=== PATIENT | male | born 1985 | race Caucasian/White ===

== ENCOUNTER 2019-02-01 21:34 | Observation (INO) | payer OTHER ==
[~2019-02-01] VITALS: Ht 170.2 cm; Wt 68.0 kg
[2019-02-01 21:42] VITALS: BP 118/71
--- NOTE | 2019-02-01 21:54 | NUR ---
PT TO ER BED 5
--- NOTE | 2019-02-01 22:02 | NUR ---
PERSONAL BELONGINGS PICKED UP BY SECURITY.
--- NOTE | 2019-02-01 22:07 | NUR ---
RX: RISPERDAL, PAXIL, PRAZOSIN
--- NOTE | 2019-02-01 22:07 | NUR ---
PT BIB SELF C/I SI. PT STATES HE HAS BEEN FEELING THAT HE WANTS TO OVERDOSE ON HIS MEDICATION, PT STATES THE FEELING COMES AND GOES AND STARTED 2 DAYS AGO, PT CARRIES MEDICATION WITH HIM IN HIS BACKPACK. PT STATES HE RECENTLY LOST HIS JOB AND HIS GIRLFRIEND KIDS MIGHT BE TAKEN AWAY FROM HIM CAUSING HIM STRESS. PT STATES HE IS COMPLIANT W/ HIS MEDICATION, BUT HAS NOT MADE ANY ATTEMPTS TO OD TODAY. DENIES 0/10 PAIN AT THIS TIME. PT DENIES N/V/D, CP, OR SOB. --BREATHING EQUAL AND UNLABORED. LUNG SOUNDS CLEAR. BOWEL SOUNDS ACTIVE X4 QUAD. PMH: BI-POLAR, DEPRESSION
--- NOTE | 2019-02-01 22:10 | NUR ---
EMT SITTER AT BEDSIDE.
[2019-02-01 22:14] LABS: BASOPHILS % (AUTO) 0.5 % (0.0-2.0); EOSINOPHILS # (AUTO) 0.1 K/uL (0-0.4); EOSINOPHILS % (AUTO) 2.1 % (0.0-4.0); HEMATOCRIT 40.5 % (36-52); HEMOGLOBIN 13.8 g/dL (12.0-18.0); LYMPHOCYTES # (AUTO) 2.5 K/uL (2.0-11.5); LYMPHOCYTES % (AUTO) 36.5 % (20.5-51.1); MEAN CORPUSCULAR HEMOGLOBIN 32 pg (27-31); MEAN CORPUSCULAR HGB CONC 34 g/dL (33-37); MEAN CORPUSCULAR VOLUME 93.4 fL (80-94); MONOCYTES # (AUTO) 0.5 K/uL (0.8-1.0); MONOCYTES % (AUTO) 7.5 % (1.7-9.3); NEUTROPHILS # (AUTO) 3.6 K/uL (1.8-7.7); NEUTROPHILS % (AUTO) 53.4 % (42.2-75.2); PLATELET COUNT (AUTO) 233 K/uL (140-450); RED BLOOD CELL COUNT(AUTO) 4.33 MIL/uL (4.20-6.10); WHITE BLOOD COUNT (AUTO) 6.7 K/uL (4.8-10.8)
--- NOTE | 2019-02-01 22:19 | NUR ---
TELE PSYCH REQUESTED VIA ON-LINE COMPUTER
[2019-02-01 22:31] LABS: ALBUMIN 4.2 g/dL (3.4-5.0); ANION GAP 11.8 (8-16); ASPARTATE AMINOTRANSFERASE 27 U/L (15-37); CARBON DIOXIDE 28.8 mmol/L (21-32); CHLORIDE 103 mmol/L (98-107); CREATININE 0.8 mg/dL (0.7-1.3); GFR ARICAN-AMERICAN 144 mL/min (>90); GLUCOSE 79 mg/dL (74-106); POTASSIUM 3.6 mmol/L (3.5-5.1); SODIUM SERUM 140 mmol/L (136-145); TOTAL BILIRUBIN 1.3 mg/dL (0.0-1.0); UREA NITROGEN, BLOOD 10 mg/dL (7-18)
[2019-02-01 22:32] LABS: ACETAMINOPHEN < 0.5 ug/ml (10-30); SALICYLATE < 2.8 mg/dL (2.8-20.0)
[2019-02-01 23:19] LABS: BARBITURATE, URINE NEG. ng/ml (NEG <=200); BENZODIAZEPINE, URINE NEG. ng/mL (NEG <=200); CANNABINOID, URINE POS. ng/mL (NEG <=50); COCAINE, URINE NEG. ng/mL (NEG <=300); OPIATE, URINE NEG. ng/mL (NEG <=2000); PHENCYCLIDINE SCREEN,URINE NEG. ng/mL (NEG <=25)
--- NOTE | 2019-02-02 01:15 | NUR ---
REPORT PROVIDED TO DR. CARMENCITA SCHWARTZ IN PREPARATION FOR EVALUATION.
--- NOTE | 2019-02-02 02:00 | NUR ---
CALL FROM DR. CARMENCITA SCHWARTZ, PT SHOULD BE ADMITTED AND CONTINUE ON HIS CURRENT MEDICATION. JAZLYN JACOBSON AWARE. Addendum: 02/02/19 at 0224 by [email or web address] CALL FROM DR. CARMENCITA SCHWARTZ, PT SHOULD BE ADMITTED AND CONTINUE ON HIS CURRENT MEDICATION, RECOMMENDS TO MONITOR FOR ORTHOSTATIC HYPOTENSION. JAZLYN JACOBSON AWARE. WILL CONTINUE TO MONITOR.
[2019-02-02] MEDS ORDERED: RISP0.5T19 PO (02:03)
[2019-02-02] MEDS ORDERED: PAX20 PO (02:03)
--- NOTE | 2019-02-02 02:35 | NUR ---
PT SLEEPING, BREATHING EQUAL AND UNLABORED. VSS. SITTER AT BESIDE. SAFETY PRECAUTIONS IN PLACE. WILL CONTINUE TO MONITOR.
--- NOTE | 2019-02-02 04:00 | NUR ---
[employer] AT BEDSIDE.
--- NOTE | 2019-02-02 04:45 | NUR ---
PT RESTING IN BED. PT BREATHING EQUAL AND UNLABORED.
--- NOTE | 2019-02-02 05:11 | NUR ---
Called the following contracted psych facilities for bed placement. [facility], spoke with Maria Alejandra. No beds available at this time. [facility], spoke with Dajuan. No beds available at this time. [facility], spoke with Aubrey. No beds available at this time. [facility], spoke with Sarah. No beds available at this time. New referral packet has been faxed. [facility], spoke with Tamika. No beds available at this time. New referral packet has been faxed. [facility], spoke with Erlin. No beds available at this time. New referral has been faxed. Call Center will inform ED if new information comes up.
--- NOTE | 2019-02-02 05:37 | NUR ---
TALKED WITH DB BAKER FROM [facility] PLACEMENT, NO BEDS AVAILABLE, OK TO ADMIT HERE.
--- NOTE | 2019-02-02 05:40 | NUR ---
CALLED [facility] AND TALKED WITH EXCHANGE. DR JOHNSON IS PLUMBING DESIGNER AND WILL CALL BACK FOR ADMISSION ORDERS.
--- NOTE | 2019-02-02 05:45 | NUR ---
PT REFUSED IV PLACEMENT AT THIS TIME. ER AWARE.
--- NOTE | 2019-02-02 06:10 | NUR ---
CALLED [facility] FOR ADMISSION. WAITING FOR DR ARRIAGA TO CALL BACK. SECOND CALL.
[2019-02-02] MEDS ORDERED: ONDANSETRON 4 MG/2 ML VIAL IVP PRN (06:20)
[2019-02-02] MEDS ORDERED: ACETAMINOPHEN 325 MG TAB PO PRN (06:20)
[2019-02-02] MEDS ORDERED: ALBUTEROL 0.083% 2.5 MG/3 ML NEBU INH PRN (06:20)
--- NOTE | 2019-02-02 06:45 | NUR ---
Patient will be admitted to care of Dr. Martinez. Admited to Med-Surg. Will go to room 109-B. Belongings list completed. Report to SAMUEL Wilhelm.
--- NOTE | 2019-02-02 06:45 | NUR ---
PT ARRIVED TO UNIT VIA WHEELCHAIR AND AMBULATED TO BED- STEADY WITHOUT ASSISTANCE. RECEIVED REPORT FROM ER NURSE YOU-SAMUEL AT BEDSIDE. PT AOX4 ON 5150 HOLD FOR SUICIDAL IDEATION, ON ROOM AIR WITHOUT IV ACCESS- PT REFUSED. VITAL SIGNS TAKEN AND DECREASED BP NOTED. MRSA NARES SWAB COLLECTED- PT TOLERATED WELL. BED IN LOWEST POSITION, BED BREAKS ON, BOTH SIDE RAILS UP AND SITTER AT BEDSIDE. BEDSIDE TABLE WITHIN REACH. NO S/S OF RESPIRATORY DISTRESS OR DISCOMFORT NOTED AT THIS TIME. WILL CONTINUE TO MONITOR.
--- NOTE | 2019-02-02 07:17 | NUR ---
PATIENT HAS BEEN SCREENED AND CATEGORIZED LOW NUTRITION RISK. PATIENT WILL BE SEEN WITHIN 7 DAYS OF ADMISSION. 02/09/19 HAYES VIVAR MS, RDN
--- NOTE | 2019-02-02 07:32 | NUR ---
RECEIVED REPORT FROM CHAMP CLAIMS SUPERVISOR RN. PT AAOX4 ON 5150 HOLD FOR SUICIDAL IDEATION, ON ROOM AIR WITHOUT IV ACCESS- PT IS REFUSING. VITAL SIGNS TAKEN AND DECREASED BP NOTED. BED IN LOWEST POSITION, BED BREAKS ON, BOTH SIDE RAILS UP AND SITTER AT BEDSIDE. BEDSIDE TABLE WITHIN REACH. NO S/S OF RESPIRATORY DISTRESS OR DISCOMFORT NOTED AT THIS TIME. WILL CONTINUE TO MONITOR.
--- NOTE | 2019-02-02 07:34 | NUR ---
ENDORSED PT CARE TO DAY SHIFT NURSE LARY FOR CONTINUITY OF CARE.
[2019-02-02 08:00] VITALS: BP 90/57
[2019-02-02] MEDS: PARoxetine 20 MG TAB PO SCH (09:35)
--- NOTE | 2019-02-02 09:38 | NUR ---
ADMINISTERED MORNING PAXIL TO PT. PT TOLERATED WELL. ALL NEEDS MET THIS TIME. SITTER AT BEDSIDE 1:1. WILL CONTINUE TO ROUND FREQUENTLY ON PT.
--- NOTE | 2019-02-02 11:27 | NUR ---
Contacted patient nurse, Rosenda, regarding medical clearance. Per Rosenda she will contact physician and call back with further information.
--- NOTE | 2019-02-02 11:57 | NUR ---
PT ASLEEP IN BED. SITTER 1:1 AT BEDSIDE. ALL NEEDS MET AT THIS TIME. WILL CONTINUE TO ASSESS PT.
--- NOTE | 2019-02-02 15:33 | NUR ---
PT SLEEPING. NO SIGNS OF PAIN OR DISTRESS. WILL CONTINUE TO MONITOR PT.
--- NOTE | 2019-02-02 19:42 | NUR ---
ENDORSED PT TO MAINTENANCE ADVISOR FOR CONTINUITY OF CARE. PT IN STABLE CONDITION.
--- NOTE | 2019-02-02 20:19 | NUR ---
PT REFUSED ATTEMPT TO OBTAIN VITAL SIGNS, OR AUSCULTATE LUNGS. EXPLAINED INDICATIONS AND PT STILL REFUSED. NURSE MADE AWARE.
--- NOTE | 2019-02-02 20:20 | NUR ---
RECEIVED PT FROM AM SHIFT NURSEALBA.ON 5149 HOLD WITH 1:1 SITTER. PT AWAKE, AMBULATORY O X 4. EXPLAINED THE POC. PLACED IN A LOW BED POSITION. Addendum: 02/02/19 at 2224 by Leila Peraza RN CHANGED NAME OF AM SHIFT NURSE TO TRINI AND NOT ALBA.
--- NOTE | 2019-02-02 20:22 | NUR ---
RECEIVED PT NO AFFECT, UNCOOPERATIVE. PT READING AT THIS TIME. HE REFUSED VS. HE REFUSED HIS MEDS. WILL INFORM
--- NOTE | 2019-02-02 20:23 | NUR ---
RT WAS HERE TO GIVE PT BREATHING TX BUT PATIENT REFUSED UNCOOPERATIVE.
--- NOTE | 2019-02-02 20:24 | NUR ---
PATIENT SAID THAT HE WANTS HIS 5150 TO BE LIFTED . AWAITING CONSULT OF DR. GUERRA.
[2019-02-02] MEDS ORDERED: RISPERIDONE PO SCH (21:00)
[2019-02-02] MEDS ORDERED: risperiDONE 1 MG TAB PO SCH (21:00)
--- NOTE | 2019-02-02 22:57 | NUR ---
PT SHOUTING AND ASKING FOR A BOOK IN HIS PERSONNEL BELONGINGS WITH SECURITY. SECURITY HEAD HERE AND TRYING TO CALM HIM DOWN.
--- NOTE | 2019-02-02 22:58 | NUR ---
PT ASKED A SHOWER, PT NOT ALLOWED 5150 HOLD
--- NOTE | 2019-02-03 06:58 | NUR ---
PT AWAKE, ALERT O X 4. ON 5150 HOLD WIITH 1:1 SITTER .STABLE AT THIS TIME, NO BEHAVIORAL ESCALATION NOTED FOR NOW. STILL AWAITING DR. GUERRA CONSULT.WILL ENDORSE TO NEXT SHIFT
--- NOTE | 2019-02-03 07:15 | NUR ---
RECEIVED REPORT FROM PERCUSSION TUNER RN. PT AAOX4 ON 5150 HOLD FOR SUICIDAL IDEATION, ON ROOM AIR WITHOUT IV ACCESS- PT IS REFUSING. VITAL SIGNS TAKEN AND DECREASED BP NOTED. BED IN LOWEST POSITION, BED BREAKS ON, BOTH SIDE RAILS UP AND SITTER AT BEDSIDE. BEDSIDE TABLE WITHIN REACH. NO S/S OF RESPIRATORY DISTRESS OR DISCOMFORT NOTED AT THIS TIME. WILL CONTINUE TO MONITOR.
[2019-02-03] MEDS: PARoxetine 20 MG TAB PO SCH (08:33)
--- NOTE | 2019-02-03 09:15 | NUR ---
PT SLEEPING. NO SIGNS OF PAIN OR DISTRESS. WILL CONTINUE TO MONITOR PT.
--- NOTE | 2019-02-03 13:01 | NUR ---
PT DISCHARGED HOME FOR SELF CARE. PT DISCHARGE TEACHING WAS GIVEN. PT VERBALIZED UNDERSTANDING OF TEACHING. IV REMOVED WITH TIP INTACT. WRIST BAND REMOVED AND PLACED IN SHRED BIN. ALL PERSONAL BELONGINGS WERE BROUGHT TO PT BY SECURITY. PT VERBALIZED THAT ALL PERSONAL BELONGINGS WERE RETURNED. PT LEFT IN STABLE CONDITION. BUS VOUCHER WAS GIVEN TO PT FOR EASE OF TRAVEL BACK HOME TO [place].
--- NOTE | 2019-02-03 13:02 | NUR ---
PT REFUSED TO TAKE DISCHARGE PAPERWORK WITH HIM. PAPERWORK PLACED IN PATIENT'S CHART.
--- NOTE | 2019-02-03 15:37 | NUR ---
RECEIVED REPORT FROM AUTOMOBILE BODY REPAIR SUPERVISOR RN. PT AAOX4 ON 5150 HOLD FOR SUICIDAL IDEATION, ON ROOM AIR WITHOUT IV ACCESS- PT IS REFUSING. VITAL SIGNS TAKEN AND DECREASED BP NOTED. BED IN LOWEST POSITION, BED BREAKS ON, BOTH SIDE RAILS UP AND SITTER AT BEDSIDE. BEDSIDE TABLE WITHIN REACH. NO S/S OF RESPIRATORY DISTRESS OR DISCOMFORT NOTED AT THIS TIME. WILL CONTINUE TO MONITOR. Addendum: 02/03/19 at 1538 by Rosenda Esparza RN [id number]---RECEIVED REPORT FROM AUTOMOBILE BODY REPAIR SUPERVISOR RN. PT AAOX4 ON 5150 HOLD FOR SUICIDAL IDEATION, ON ROOM AIR WITHOUT IV ACCESS- PT IS REFUSING. VITAL SIGNS TAKEN AND DECREASED BP NOTED. BED IN LOWEST POSITION, BED BREAKS ON, BOTH SIDE RAILS UP AND SITTER AT BEDSIDE. BEDSIDE TABLE WITHIN REACH. NO S/S OF RESPIRATORY DISTRESS OR DISCOMFORT NOTED AT THIS TIME. WILL CONTINUE TO MONITOR.
== END 2019-02-03 13:01 | disposition home or self-care (01) ==
LOC: MED 21:34 → MTU 02-02 06:23 → UNDOADMIN 02-02 06:23 → MTU 02-02 06:30 → INTOOBSV 02-02 06:30 → OBSVTOIN 02-02 06:30
PROVIDERS: ADMIT Hospitalist; ATTEND Hospitalist
DX: R45.851 Suicidal ideations (principal); F12.10 Cannabis abuse, uncomplicated; Z91.5 Personal history of self-harm; F17.210 Nicotine dependence, cigarettes, uncomplicated; F32.9 Major depressive disorder, single episode, unspecified; F43.10 Post-traumatic stress disorder, unspecified; E80.6 Other disorders of bilirubin metabolism; F31.9 Bipolar disorder, unspecified
CPT/HCPCS: 36415; 80053; 80305; 85025; 87081; 93005; 94760; 99285; G0378; G0480; G0482